=== PATIENT | male | born 1990 | race Caucasian/White ===

== ENCOUNTER 2018-07-25 05:37 | Observation (INO) | payer OTHER ==
[2018-07-25] MEDS ORDERED: CEFAZOLIN 1 GM INJ (07:00)
[2018-07-25] MEDS ORDERED: FENTAnyl 50 MCG/ML VIAL ×2 (07:22→08:07)
[2018-07-25] MEDS ORDERED: ACETAMINOPHEN 1000MG/100ML IV 100 ML (07:23)
[2018-07-25] MEDS ORDERED: MIDAZOLAM 1 MG/ML 2 ML INJ ×2 (07:23→11:00)
[2018-07-25] MEDS ORDERED: FENTAnyl 50 MCG/ML VIAL IV (07:30)
[2018-07-25] MEDS ORDERED: IPRATROPIUM (NEB) 0.5 MG/2.5 ML AMP HHN (07:30)
[2018-07-25] MEDS ORDERED: HYDROmorphONE 1 MG/5 ML IV SYRINGE IV ×2 (07:30)
[2018-07-25] MEDS ORDERED: LEVALBUTEROL (NEB) 1.25 MG/0.5 ML AMP HHN (07:30)
[2018-07-25] MEDS ORDERED: DEXAMETHASONE 4 MG/ML 1 ML INJ (07:40)
[2018-07-25] MEDS ORDERED: ONDANSETRON 4 MG INJ (07:41)
[2018-07-25] MEDS ORDERED: PROPOFOL 20 ML (07:53)
[2018-07-25] MEDS ORDERED: ROCURONIUM 50 MG INJ (07:53)
[2018-07-25] MEDS ORDERED: LIDOCAINE 2% (SDV) 5 ML INJ (07:53)
[2018-07-25] MEDS ORDERED: SUCCINYLCHOLINE CHLORIDE 100 MG/5 ML SYG IV (07:53)
[2018-07-25] MEDS: BUPIVACAINE 0.25%/EPI (SDV) 30 ML INJ (08:03)
[2018-07-25] MEDS: GELATIN SIZE 100 SPONGE (08:04)
[2018-07-25] MEDS: THROMBIN 5000 UNIT VIAL (08:04)
[2018-07-25] MEDS: POLYMYXIN/BACITRACIN 1L IRRIG (08:04)
[2018-07-25] MEDS ORDERED: BETAMET NA PHOS/AC(6 MG/ML) 5ML INJ (09:21)
[2018-07-25] MEDS ORDERED: NACL 0.9% 3 ML SYG IV (10:00)
[2018-07-25] MEDS ORDERED: NALOXONE (0.4 MG/ML) INJ IV ×2 (10:00→11:00)
[2018-07-25] MEDS ORDERED: ACETAMINOPHEN 325 MG TAB PO (10:00)
[2018-07-25] MEDS ORDERED: HYDROmorphONE 0.5 MG/0.5 ML SYG IV (10:00)
[2018-07-25] MEDS ORDERED: HYDROCODONE/APAP (5/325) TAB PO (10:00)
[2018-07-25] MEDS ORDERED: ONDANSETRON 4 MG INJ IV (10:00)
[2018-07-25] MEDS: FENTAnyl 50 MCG/ML VIAL IV (10:29)
[2018-07-25] MEDS ORDERED: HYDROmorphONE 0.2 MG/ML PCA (10:42)
[2018-07-25] MEDS: HYDROmorphONE 1 MG/5 ML IV SYRINGE IV (10:45)
[2018-07-25] MEDS: DIPHENHYDRAMINE 50 MG INJ IV (10:45)
[2018-07-25] MEDS: MEPERIDINE 25 MG INJ IV (10:45)
[2018-07-25] MEDS: HYDROmorphONE 0.2 MG/ML PCA IV (10:54)
[2018-07-25] MEDS: ONDANSETRON 4 MG INJ IV (11:00)
[2018-07-25] MEDS: MIDAZOLAM 1 MG/ML 2 ML INJ IV (11:13)
[2018-07-25] MEDS: CEFAZOLIN 1 GM/50 ML (PMX) 50 ML IVPB ×3 (11:16→23:30)
[2018-07-25] MEDS: LACTATED RINGER'S 1,000 ML IV ×2 (13:19→23:30)
[2018-07-25] MEDS: DIAZEPAM 2 MG TAB PO (15:09)
[2018-07-26] MEDS: CEFAZOLIN 1 GM/50 ML (PMX) 50 ML IVPB (05:57)
[2018-07-26] MEDS: LACTATED RINGER'S 1,000 ML IV (08:00)
[2018-07-26] MEDS: HYDROCODONE/APAP (5/325) TAB PO (09:40)
== END 2018-07-26 13:41 | disposition home or self-care (01) ==
LOC: SDS 05:37 → MS1 11:29
DX: M51.17 Intervertebral disc disorders with radiculopathy, lumbosacral region (principal)
CPT/HCPCS: 63030; 72100; 97116; 97161; 97530; 99217